=== PATIENT | female | born 1985 | race Caucasian/White ===

== ENCOUNTER → 2020-05-24 13:10 | Outpatient (BNVA) | payer OTHER, SELFPAY | PROVIDERS: PCP Internal Medicine; Visit Provider Surgery | DX: K64.8 Other hemorrhoids (principal) | CPT/HCPCS: 46600 ==

== ENCOUNTER 2021-09-16 11:02 | Outpatient (REF) | payer OTHER, SELFPAY ==
[2021-09-16 11:04] LABS: MANUAL DIFF FLAG NO
[2021-09-16 11:31] LABS: Basophils Percent Auto 0.5 % (0-2); Eosinophils Absolute Auto 0.1 X10*3/uL (0.0-0.4); Eosinophils Percent Auto 1.2 % (0-4); Hemoglobin 13.2 g/dl (12.0-16.0); Imm Gran Abs Auto 0.01 X10*3/uL (0.00-0.03); Imm Gran Pct Auto 0.2 % (0.0-0.4); Lymphocytes Absolute Auto 2.1 X10*3/uL (1.2-4.9); Lymphocytes Percent Auto 35.8 % (20-40); Mean Corpuscular Hemoglobin 29.9 pg (27.0-33.0); Mean Corpuscular Volume 90.7 fL (80.0-98.0); Mean Platelet Volume 9.9 fL (9.4-12.3); Monocytes Absolute Auto 0.4 X10*3/uL (0.1-1.2); Monocytes Percent Auto 7.1 % (2-11); Neutrophils Absolute Auto 3.2 x10*3/uL (2.0-8.3); Neutrophils Percent Auto 55.2 % (45-73); Platelet Count 255 X10*3/uL (160-400); Red Blood Count 4.41 X10*6/uL (4.20-5.50); Red Cell Distribution Width 12.6 % (11.0-16.0); White Blood Count 5.8 X10*3/uL (4.8-10.8)
[2021-09-16 11:46] LABS: Appearance Urine CLOUDY; Color Urine YELLOW; Glucose Urine UA NEG (NEG); Leukocyte Esterase Urine NEG (NEG); Nitrite Urine NEG (NEG); PH 6.5 (5.0-8.0); Urine Blood TRACE (NEG); Urine Ketones NEG (NEG); Urine Protein NEG (NEG-TRACE)
[2021-09-16 12:01] LABS: Alanine Aminotransferase 11 U/L (0-31); Albumin Level 4.3 g/dL (3.5-5.0); Alkaline Phosphatase 43 U/L (39-117); Anion Gap 13 (12-20); Aspartate Amino Transferase 14 U/L (5-31); Bilirubin Total 0.8 mg/dL (0.0-1.0); Blood Urea Nitrogen 14 mg/dL (9-16); Calcium 8.9 mg/dL (8.4-10.2); Carbon Dioxide 26 mmol/L (22-29); Chloride 106 mmol/L (96-108); Cholesterol 163 mg/dL; Estimated Glomerular Filt Rate > 60; Glucose Fasting 88 mg/dL (60-99); HDL Cholesterol 61 mg/dL; LDL Cholesterol Calculated 95 mg/dl; Potassium 4.2 mmol/L (3.3-5.1); Sodium 141 mmol/L (135-145); Total Protein 6.8 g/dL (6.5-8.0); Triglycerides 37 mg/dL
[2021-09-16 12:14] LABS: Squamous Epithelial Cell Urine 2+ /LPF
[2021-09-16 12:16] LABS: Bacteria Urine 2+ /LPF; RBC Urine 0-2 /HPF (0); WBC Urine 0-2 /HPF (0-4)
[2021-09-16 12:17] LABS: Mucus Urine 1+ /LPF
== END 2021-09-16 11:03 | disposition home or self-care (01) ==
LOC: HO.LNP 11:02
PROVIDERS: Visit Provider Internal Medicine
DX: Z00.00 Encounter for general adult medical examination without abnormal findings (principal); F90.0 Attention-deficit hyperactivity disorder, predominantly inattentive type
CPT/HCPCS: 80053; 80061; 81001; 85025

== ENCOUNTER 2023-07-18 15:29 | Outpatient (AMB) | payer OTHER, SELFPAY ==
--- NOTE | 2023-07-18 15:10 | A.OFFPC_ITS ---
Vital Signs 07/18/23 15:39 Height 5 ft 1.81 in BP 110/74 Blood Pressure Location Rt brachial Position Sitting Respiration 14 Pulse 94 Pulse Source Pulse Oximeter Temp 98.3 F Temp Source Oral Pulse Oximetry (%) 98 Oxygen Delivery Method Room Air Intake Visit Reasons: ESTABLISH CARE TRANSFER FROM [facility] Intake Note: New patient visit Is last menstrual period known: Yes Last menstrual period: 07/18/23 Allergies amoxicillin Allergy (Unknown, Verified 07/18/23 15:36) rash Medication List - Last Reconciled 07/18/23 by Rosy Stevens PA-C bupropion HCl XL 150 mg PO QAM dextroamphetamine-amphetamine 15 mg 1 tab PO BID hydroxyzine HCl 25 mg PO DAILY lorazepam 1 mg PO DAILY PRN Tobacco use date assessed: 07/18/23 Dental Screening Dental Screen Date: 07/18/23 Did you have a dental visit in the last 12 months?: Yes Did you have a dental problem in the last 6 months where you did not have access to dental care?: No Was dental information given to patient?: Patient has dentist HPI ESTABLISH CARE TRANSFER FROM [facility] HPI Details Patient is a 37-year-old female with a significant past medical history of ADHD, dysthymia, generalized anxiety and external hemorrhoids presenting today for a follow up. Psych: Currently on Adderall 15 mg twice a day, wellbutrin 150 mg and lorazepam as needed she is going through a divorce. She is working full-time. She gets 1 rx a year of the lorazepam. At our last appointment for a physical in February she was referred to vascular surgery for her spider veins. Data Analysis Intern: Up-to-date [facility] Medical History (Updated 07/18/23 @ 16:10 by Rosy Stevens PA-C) Spider veins Panic attacks Generalized anxiety disorder External hemorrhoids Dysthymia ADHD Internal and external prolapsed hemorrhoids Surgical History History of breast augmentation (~2018) Family History (Updated 07/18/23 @ 15:38 by Chula Scanlon CMA) Paternal Grandmother Breast cancer Other FH: mental illness Social History (Updated 07/18/23 @ 15:38 by Chula Scanlon CMA) Housing: House Alcohol intake: current Alcohol intake frequency: 0-2 drinks per day Patient Tobacco Use Status: Never used Tobacco e-Cigarette/Vaping Use: Never Used Second Hand Smoke Exposure: No Substance Use Type: Marijuana service: No Current occupational status: employed Current occupation: IT Current occupational exposures/hazards: No Cognitive needs: No Hearing needs: No Vision needs: No Female Reproductive History Menstrual Date of last menstrual period: 07/18/23 Questionnaire PHQ-9 Over the last 2 weeks, how often have you been bothered by any of the following problems? 1. Little interest or pleasure in doing things: not at all 2. Feeling down, depressed, or hopeless: several days 3. Trouble falling or staying asleep, or sleeping too much: not at all 4. Feeling tired or having little energy: not at all 5. Poor appetite or overeating: not at all 6. Feeling bad about yourself - or that you are a failure or have let yourself or your family down: not at all 7. Trouble concentrating on things, such as reading the newspaper or watching television: not at all 8. Moving or speaking so slowly that other people could have noticed. Or the opposite - being so fidgety or restless that you have been moving around a lot more than usual: not at all 9. Thoughts that you would be better off or of hurting yourself in some way: not at all Total score: 1 Depression Screening Interpretation: Negative Depression Screening Done: Yes 38664 - PHQ-9 Billing: Yes Source: Developed by Drs. Dimitrios Davenport, Andreea Dan, Edd Jhaveri and colleagues, with an educational saad from [employer]. Thrive Questionnaire Date Thrive assessed: 07/18/23 I am a: Patient What is your living situation today?: I have a steady place to live Within the past 12 months, did the food you bought not last and you didn't have the money to get more?: Never true Within the past 12 months, did you worry whether your food would run out before you got money to buy more?: Never true Do you have trouble paying for medicines?: No Do you have trouble getting transportation to medical appointments?: No Do you have trouble paying your heating and electricity bill?: No Do you have trouble taking care of your child, family member or friend?: No Do you have trouble with day-to-day activities such as bathing, preparing meals, shopping, managing finances, etc.?: No Are you currently unemployed and looking for a job?: No Are you interested in more education?: No Please select the resources that you would like help with: None Currently or been in a relationship where the following occur: no concerns reported THRIVE Score: 0 AUDIT C Alcohol Use Questionnaire (AUDIT-C) 1. How often do you have a drink containing alcohol?: 2-4 times a month 2. How many drinks containing alcohol do you have on a typical day when you are drinking?: 1 or 2 3. How often do you have six or more drinks on one occasion?: Never Total Score: 2 PANCHO-7 AMB Questionnaire PANCHO-7 Date PANCHO - 7 assessed: 07/18/23 Feeling nervous, anxious, or on edge: 1 = Several days Not being able to stop or control worryin = Several days Worrying too much about different things: 1 = Several days Trouble relaxin = More than half the days Being so restless that it is hard to sit still: 1 = Several days Becoming easily annoyed or irritable: 0 = Not at all Feeling afraid as if something awful might happen: 0 = Not at all Total PANCHO-7 score (0-4 normal; 5-9 mild; 10-14 moderate; 15-21 severe): 6 Source: Developed by Drs. Dimitrios Davenport, Andreea Dan, Edd Jhaveri and colleagues, with an educational saad from [employer]. PANCHO-7 Assessment Billing PANCHO-7 Assessment Tool: PANCHO-7 Assessment 68107 Physical exam (Primary Care) Vital Signs: Last Vital Signs Temp 98.3 F 07/18/23 15:39 Pulse 94 07/18/23 15:39 Resp 14 07/18/23 15:39 BP 110/74 07/18/23 15:39 Pulse Ox 98 07/18/23 15:39 Oxygen Delivery Method Room Air 07/18/23 15:39 Tobacco/Smoking Status: Tobacco use Status Tobacco use date assessed 07/18/23 07/18/23 15:16 Patient Tobacco Use Status Never used Tobacco 07/18/23 15:38 e-Cigarette/Vaping Use Never Used 07/18/23 15:38 Depression Screening Interpretation: Negative Currently or been in a relationship where the following occur: no concerns reported Const Orientation/consciousness: patient oriented x3 HENMT Ears: hearing grossly normal bilaterally Neck Thyroid: Thyroid normal Lymphatic: no lymphadenopathy noted Resp Auscultation: clear to auscultation bilaterally Cardio Rate: regular rate Rhythm: regular rhythm Heart sounds: S1 normal heart sound present and S2 normal heart sound present GI Inspection: Yes normal to inspection Palpation (GI): Soft to palpation and Other GI palpation findings present (nontender, no cva tenderness) Auscultation: normoactive bowel sounds Rectal Exam - Female: deferred Skin General skin exam: no rashes or lesions noted Neuro General: patient oriented x3, gait normal and no focal motor deficits Assessment and Plan Assessment & Plan (1) ADHD: Code(s): F90.9 - Attention-deficit hyperactivity disorder, unspecified type Qualifiers: Attention deficit-hyperactivity disorder type: combined inattentive- hyperactive Qualified Code(s): F90.2 - Attention-deficit hyperactivity diso rder, combined type Plan: Continue current regimen. Has been on this for years. CSC signed today. (2) Generalized anxiety disorder: Code(s): F41.1 - Generalized anxiety disorder Plan: Well-controlled. (3) Dysthymia: Comment: Well-controlled with the Wellbutrin. Continue current regimen Code(s): F34.1 - Dysthymic disorder Plan Follow up in 6 months or sooner if needed. Patient understands and agrees with the plan. Medications: New bupropion HCl XL 150 mg PO QAM 90 tabs 3RF lorazepam 1 mg PO DAILY 30 days PRN 30 tabs 0RF anxiety dextroamphetamine-amphetamine 15 mg 1 tab PO BID 30 days 60 tabs 0RF Coding Level of Care Code Est Pt Level 4 (00239) Diagnoses Attention deficit hyperactivity disorder (ADHD), combined type F90.2 Attention deficit-hyperactivity disorder type: combined inattentive- hyperactive Generalized anxiety disorder F41.1 Dysthymia F34.1 Additional Codes PANCHO-7 Assessment Billing - PANCHO-7 Assessment Tool: PANCHO-7 Assessment 52269 ([id number])
[2023-07-18 15:39] VITALS: BP 110/74; PULSE 94; RESP 14; TEMP 36.8; O2SAT 98
== END 2023-07-18 16:33 | disposition home or self-care (01) ==
PROVIDERS: PCP Internal Medicine; Visit Provider Physician Assistant
DX: F90.2 Attention-deficit hyperactivity disorder, combined type (principal); F41.1 Generalized anxiety disorder; F34.1 Dysthymic disorder
CPT/HCPCS: 99214

== ENCOUNTER 2024-04-03 15:32 | Outpatient (REF) | payer OTHER, SELFPAY ==
--- OUTSIDE RECORDS SUMMARY | 2024-04-04 11:50 | XMS_ITS | Continuity of Care Document ---
Author Organization [facility] Address [address] [place] [address] [address] [place] [phone] Phone Care Team Providers Care Home Organizer Name Role Phone Jacqueline Suarez MD, FACS, RVT Unavailable Unavailable Advance Directives Directive Yes / No Effective Date File Name No Information Encounters Encounter Description Practice Location Reason(s) For Visit Diagnoses Date Provider Providers Copied on Encounter [facility], [address] [place] [address] [address], [place], [id number], tel:[phone] [facility] No Information 4 Adebayo WATKINS FACS TREVA Lyons. [address] [address], [place], [address], [place]. tel:[phone] Family History Family Member Type Diagnosis Age [...]
--- OUTSIDE RECORDS SUMMARY | 2024-04-04 11:51 | XMS_ITS | Patient Health Record ---
Author Organization [facility] Pollack MD Address [address] [place], [place] [id number] Care Team Providers Care Radio Repairman Name Role Phone Sergye Pollack Primary Care Provider Allergies Allergen (clinical drug ingredient) Drug/Non Drug Allergy documented on EMR Reaction Allergy Type Onset Date Status Penicillin G Benzathine Rash Drug Allergy Active Reason For Referral No Information Medications Medication SIG (Take, Route, Fr equency, Duration) Notes Start Date End Date Status Tretinoin 0.05 % 1 application in the evening to face Externally Once a day for 30 days 06/23/2021 Active Tretinoin 0.05 % 1 application in the evening to face Externally Once a day for 30 days 06/23/2021 Active Adderall 10 MG 1 tablet Orally Twic e a day for 30 days 05/04/2022 Active LORazepam 0.5 MG 1 tablet as needed O rally every 12 hra for 10 days 08/21/2017 Not-Taking Immunizations Vaccine Route Administration Date Status Comme nts Fluarix Quadrivalent Unknown 01/09/2017 Administered At worl Pisek Allison TDaP Unknown 06/02/2014 Administered at sales product specialist SARS-COV-2 Pfizer Unknown 09/03/2020 Administered SARS-COV-2 Pfizer Unknown 02/03/2021 Administered Tetanus Unknown 06/02/2014 Pending Social History Tobacco Use: Social History Observation Description Date Details (start date - stop date) Never Smoker NA - NA Tobacco Use/Smoking Question Answer Notes Patient is a nonsmoker Additional Findings: Tobacco Non-User Cu rrent non-smoker, currently using no form of tobacco Alcohol Screen Question Answer Notes Did you have a drink contain ing alcohol in the past year? Yes How often did you have a dri nk containing alcohol in the past year? Monthly or less (1 point) How many drinks did you have on a typical day when you were drinking in the past year? 1 or 2 drinks (0 point) How often did you have 6 or more drinks on one occasion in the past year? Never (0 point) Points 1 Interpretation Negative Problems Problem Type SNOMED Code ICD Code Onset Dates Problem Status W/U Status Risk Notes Problem Anxiety (06932454) Anxiety (F41.9) Active confirmed Problem [id number] ADD (attention deficit disorder) (F90.0) Active confirmed Problem [id number] Dysthymia (F34.1) Active confirmed Problem [id number] Panic attack (F41.0) Active confirmed Problem 18199140 ADD (attention deficit disorder) without hyperactivity (F98.8) Active confirmed Plan Of Treatment No Information Insurance Providers Payer Name Payer Address Payer Phone Subscriber Number Group Number Insured Name Patient Relationship to Insured Coverage Start Date Coverage End Date [facility] [address] [facility] [place] [phone] [id number] [place] Self - patient is the insured
[2024-04-04 13:26] LABS: Bacterial Vaginosis PCR NEGATIVE (Negative); Candida Group PCR NOT DETECTED (Not Detect); Candida glab krusei PCR NOT DETECTED (Not Detect); Trichomonas vaginalis PCR NOT DETECTED (Not Detect)
[2024-04-04 13:58] LABS: CT PCR NOT DETECTED (Not Detect.); NG PCR NOT DETECTED (Not Detect.)
== END 2024-04-03 15:33 | disposition home or self-care (01) ==
LOC: HO.LNP 15:32
PROVIDERS: PCP Physician Assistant; Visit Provider Physician Assistant
DX: Z20.2 Contact with and (suspected) exposure to infections with a predominantly sexual mode of transmission (principal); N89.8 Other specified noninflammatory disorders of vagina
CPT/HCPCS: 81515; 87086; 87147; 87491; 87591

== ENCOUNTER → 2024-04-03 15:32 | Outpatient (AMB) | payer OTHER, SELFPAY ==
--- NOTE | 2024-04-03 15:36 | MHC.PC.OV ---
Vital Signs 04/03/24 15:41 Height 5 ft 1.81 in Weight 118 lb 2 oz BMI 21.7 BP 112/76 Blood Pressure Location Lt brachial Position Sitting Respiration 12 Pulse 83 Pulse Source Pulse Oximeter Pulse Oximetry (%) 99 Oxygen Delivery Method Room Air Intake Visit Reasons: Annual PE Intake Note: Physical. Wants a urine test and BV. Vaginal odor 2 weeks ago. watery discharge that last a day or two. You had STI panel done in January and was negative except for vaginal vaishnavi. Is needing 3 Lorazepam to sleep due to life stressors. Administrative Medical Director Required: No Allergies amoxicillin Allergy (Unknown, Verified 04/03/24 15:37) rash Medication List - Last Reconciled 04/03/24 by Rosy Stevens PA-C hydroxyzine HCl 25 mg PO DAILY lorazepam 1 mg PO DAILY PRN 30 days Tobacco use date assessed: 07/18/23 Dental Screening Dental Screen Date: 07/18/23 HPI Annual PE HPI Details History of Present Illness The patient is a 38-year-old female presenting For a physical exam. She does have a couple concerns today. Parts Specialist: She complains today of persistent vaginal issues. The vaginal issues are characterized by recurrent bacterial vaginosis (BV) despite negative STD screenings since she began a new sexual relationship after previous clearance. The BV symptoms include transient irritation without noticeable odor to her partner but a distinct discomfort to the patient post-coitus and fishy odor that is identifiable to her. Additionally, the patient reports a heightened sensitivity to her partner's bodily fluids, and she describes a peculiar odor noticeable only to herself during intercourse. This issue dates back to initial partners and was previously attributed to the presence of an IUD, which she no longer has. Symptomatic treatment with boric acid vaginal suppositories has been attempted. Cyclical antibiotics almost always result in yeast infections, complicating prior treatment attempts. She is following with [facility] and states that she is worried that she is still experiencing these symptoms. Psych: Concurrently, the patient is experiencing significant sleep disturbances, despite trials of lorazepam and hydroxyzine. She is concerned about the cumulative effects of these medications on her health and is seeking alternatives. She is currently on Wellbutrin and Adderall as well for management of her dysthymia, anxiety and ADHD. She has been on these medications for years. The sleeping issue is relatively new over the last few months. Health Maintenance Social History Review of Systems Physical Exam General: Well developed, well nourished, in no acute distress. Appears stated age. Head: Normocephalic, atraumatic. Eyes: Pupils are equal, round and reactive to light and accommodation. Conjunctivae are clear. Vision grossly normal. Ears: Tympanic membranes clear bilaterally, external auditory canal within normal limits Nose: Patent, without discharge. Mouth: There are no ulcers or lesions noted. No inflammation, no post nasal drip, no plaques nor exudates. Neck: Supple, no adenopathy or thyromegaly. Lungs: Clear to auscultation bilaterally. No rales, rhonchi or wheeze noted. Good air flow in all pabon. Heart: Regular rate and rhythm. No murmurs, click, rubs or gallops are noted. Abdomen: Bowel sounds present in all quadrants. The abdomen is soft, nontender, with no masses or organomegaly noted. No hernias are noted. Musculoskeletal: Joints are nontender, without swelling, redness, or effusions. Range of motion is observed to be normal. Pulses: Peripheral pulses are equal and palpable bilaterally. Extremities: No clubbing, cyanosis nor edema is noted. Neurologic: Gait and station normal. Cranial Nerves 2-12 intact. Motor strength grossly symmetrical and intact. No sensory loss. Balance normal. Skin: No rashes, ulcers, or lesions noted. Turgor is good. Skin color is good. Hair and nails are without abnormalities. Psych: Normal eye contact, affect and mood appropriate, and normal interactions. Patient is alert and appropriate to context. Results Plan - Cease current sleep medications hydroxyzine); initiate trazodone trial for sleep disturbance. - Modification of Adderall dosing schedule: increase dosage In the morning and discontinue twice a day dosing. - Re-evaluation of bacterial vaginosis treatment strategies, inclusive of the potential addition of probiotics and exploration of partner treatment or differential etiology e.g., partner's microbiome). - Consideration of referral to gynecological specialists or functional medicine for hormonal evaluation. - Follow-up on prescribed medications and symptom response. Patient was informed and verbally consented to the use of an ambient scribe for clinic note documentation during this visit. Discussion Notes During the visit, I discussed the challenges associated with persistent bacterial vaginosis, including potential partner involvement and alternate bacterial vaishnavi considerations. The management strategies discussed included patient-led changes in hygiene practices. We reviewed the risks and benefits of trazodone as a sleep aid alternative, and I emphasized adjustments to the current stimulant treatment plan aimed at enhancing daytime focus while reducing the potential impact on sleep disturbance. I encouraged follow-up if symptoms persist or new issues arise and confirmed understanding and consent regarding the planned interventions. Patient Instructions - Cease Wellbutrin and hydroxyzine, and start the prescribed trazodone for sleep issues as directed. - Follow the adjusted schedule for Adderall intake to improve focus and minimize sleep disruption. - Consider testing for partner involvement or changes in activities that may contribute to recurrent BV. - Maintain good hygiene practices and consider probiotics to support vaginal vaishnavi. - Return to clinic for follow-up or persistent symptoms and seek further specialized care if necessary. [facility] Medical History (Updated 04/03/24 @ 16:29 by Rosy Stevens PA-C) Spider veins Panic attacks Generalized anxiety disorder External hemorrhoids Dysthymia ADHD Internal and external prolapsed hemorrhoids Surgical History History of breast augmentation (~2018) Family History (Updated 07/18/23 @ 15:38 by Chula Scanlon CMA) Paternal Grandmother Breast cancer Other FH: mental illness Social History (Updated 07/18/23 @ 15:38 by Chula Scanlon CMA) Housing: House Alcohol intake: current Alcohol intake frequency: 0-2 drinks per day Patient Tobacco Use Status: Never used Tobacco e-Cigarette/Vaping Use: Never Used Second Hand Smoke Exposure: No Substance Use Type: Marijuana service: No Current occupational status: employed Current occupation: IT Current occupational exposures/hazards: No Cognitive needs: No Hearing needs: No Vision needs: No Questionnaire Thrive Questionnaire Date Thrive assessed: 07/18/23 PANCHO-7 AMB Questionnaire PANCHO-7 Date PANCHO - 7 assessed: 07/18/23 Source: Developed by Drs. Dimitrios Davenport, Andreea Dan, Edd Jhaveri and colleagues, with an educational saad from [employer]. Physical exam (Primary Care) Vital Signs: Last Vital Signs Pulse 83 04/03/24 15:41 Resp 12 04/03/24 15:41 BP 112/76 04/03/24 15:41 Pulse Ox 99 04/03/24 15:41 Oxygen Delivery Method Room Air 04/03/24 15:41 BMI result Body Mass Index 21.7 Tobacco/Smoking Status: Tobacco use Status Tobacco use date assessed 07/18/23 04/03/24 15:45 Patient Tobacco Use Status Never used Tobacco 04/03/24 15:45 e-Cigarette/Vaping Use Never Used 04/03/24 15:45 Thrive Assessment: Date of Thrive Assessment Date Thrive assessed 07/18/23 04/03/24 15:45 Coding Level of Care Code Est Pt Prev Care 18-39y(44564) Diagnoses Routine general medical examination at a health care facility Z00.00 Attention deficit hyperactivity disorder (ADHD), combined type F90.2 Attention deficit-hyperactivity disorder type: combined inattentive-hyperactive Dysthymia F34.1 Generalized anxiety disorder F41.1 Assessment & Plan Assessment & Plan (1) Routine general medical examination at a health care facility: Code(s): Z00.00 - Encounter for general adult medical examination without abnormal findings Plan: Health maintenance reviewed. STD panel ordered. Labs ordered today. (2) ADHD: Code(s): F90.9 - Attention-deficit hyperactivity disorder, unspecified type Category: Medical Qualifiers: Attention deficit-hyperactivity disorder type: combined inattentive-hyperactive Qualified Code(s): F90.2 - Attention-deficit hyperactivity disorder, combined type Plan: Change dosing to Adderall once a day 20 mg. (3) Dysthymia: Code(s): F34.1 - Dysthymic disorder Category: Medical Plan: Discontinue the Wellbutrin. We will trial trazodone. Discussed risks and benefits and adverse effects of this medication. (4) Generalized anxiety disorder: Code(s): F41.1 - Generalized anxiety disorder Category: Medical Plan: As above. Plan Short term follow up. Orders: Orders HIV Ab/Ag Today Z20.2 - Contact with and (suspected) exposure to infections with a predominantly sexual mode of transmission CT NG by PCR Today Z20.2 - Contact with and (suspected) exposure to infections with a predominantly sexual mode of transmission Bacterial Vaginosis Panel Today Z20.2 - Contact with and (suspected) exposure to infections with a predominantly sexual mode of transmission Hepatitis C Antibody Today Z20.2 - Contact with and (suspected) exposure to infections with a predominantly sexual mode of transmission Syphilis Screen Today Z20.2 - Contact with and (suspected) exposure to infections with a predominantly sexual mode of transmission Medications: New trazodone 50 mg PO BEDTIME 90 tabs 0RF dextroamphetamine-amphetamine 20 mg (Adderall) Partial Fill upon patient request. 20 mg PO DAILY 30 days 30 tabs 0RF Discontinued hydroxyzine HCl Discontinued Reason: Duplicate 25 mg PO DAILY 90 tabs 1RF
--- OUTSIDE RECORDS SUMMARY | 2024-04-03 15:37 | XMS_ITS | Continuity of Care Document ---
Author Organization [facility] Address [address] [place] [address] [address] [place] [address] Phone Care Team Providers Care Engineering Recruiter Name Role Phone Jacqueline Suarez MD, FACS, RVT Unavailable Unavailable Advance Directives Directive Yes / No Effective Date File Name No Information Encounters Encounter Description Practice Location Reason(s) For Visit Diagnoses Date Provider Providers Copied on Encounter [facility], [address] [place] [address] [address], [place], [id number], tel:[phone] [facility] No Information 4 Adebayo WATKINS FACS TREVA Lyons. [address] [address], [place], [address], [place]. tel:[phone] Family History Family Member Type Diagnosis Age At Onset No Information Payers Payer name Insurance type Covered libertarian ID Authoriza tion(s) No Information Social History Type Description Quantity Date Captured Comments Sex Female Smoking Status No Information Chief Complaint And Reason For Visit No Information Reason For Referral Reason For Referral No Information History Of Present Illness Encounter Date Complaint History Of Prese nt Illness No Information Functional Status Date Functional Assessmen t No Information Instructions Date Instruction Additional Infor mation No Information Assessments Type Assessment Date No Information Patient Care Teams Name Effective Dates (start - stop) Status Members No Information
[2024-04-03 15:41] VITALS: BP 112/76; PULSE 83; RESP 12; O2SAT 99; BMI 21.7
== END ==
PROVIDERS: PCP Physician Assistant; Visit Provider Physician Assistant
DX: Z00.00 Encounter for general adult medical examination without abnormal findings (principal); F90.2 Attention-deficit hyperactivity disorder, combined type; F34.1 Dysthymic disorder; F41.1 Generalized anxiety disorder